=== PATIENT | female | born 1995 | race Caucasian/White ===

== ENCOUNTER 2016-10-30 10:33 | Emergency (ER) | payer BC ==
[2016-10-30 11:22] VITALS: BP 102/67
--- NOTE | 2016-10-30 11:37 | UC ---
Throat Pain/Nasal Gary HPI - HPI Summary HPI Summary: FEVER X 1 DAY + CHILLS, BODY ACHES, FATIGUE , + COUGH AND SORE THROAT, NO NASAL CONGESTION - History of Current Complaint Chief Complaint: UCRespiratory Stated Complaint: FLU SXS Time Seen by Provider: 10/30/16 11:23 Hx Obtained From: Patient Hx Last Menstrual Period: 10/23/16 Onset/Duration: Sudden Onset, Lasting Days - 1, Still Present Severity: Severe Cough: Nonproductive Associated Signs & Symptoms: Positive: Fever, Vomiting. Negative: Hoarseness, Sinus Discomfort, Nasal Discharge, Rash - Allergies/Home Medications Allergies/Adverse Reactions: Allergies Allergy/AdvReac Type Severity Reaction Status Date / Time seasonal Allergy Congestion Uncoded 10/30/16 11:23 Home Medications: Home Medications Norgestimate-Ethinyl Estradiol [Sprintec 28 0.25-35 mg-Mcg] 1 tab PO DAILY 10/30 [History Confirmed 10/30/16] PMH/Surg Hx/FS Hx/Imm Hx Respiratory History Of: Reports: Asthma - URI exercise induced GI/ History Of: Reports: Ulcer - URI AND EXERSIZE INDUCED - Surgical History Surgical History: Yes Surgery Procedure, Year, and Place: wisdom teeth - Family History Known Family History: Negative: Diabetes - Social History Alcohol Use: Occasionally Substance Use Type: None Smoking Status (MU): Never Smoked Tobacco Review of Systems Constitutional: Fever, Chills, Fatigue Skin: Negative Eyes: Negative ENT: Sore Throat Respiratory: Cough Cardiovascular: Negative Gastrointestinal: Negative Genitourinary: Negative Musculoskeletal: Arthralgia, Myalgia All Other Systems Reviewed And Are Negative: Yes Physical Exam Triage Information Reviewed: Yes Appearance: Well-Appearing, No Pain Distress, Well-Nourished Vital Signs: Initial Vital Signs Temp 99.4 F 10/30/16 11:13 Pulse 113 10/30/16 11:13 Resp 20 10/30/16 11:13 BP 102/67 10/30/16 11:13 Pulse Ox 99 10/30/16 11:13 Vital Signs Reviewed: Yes Eyes: Positive: Conjunctiva Clear ENT: Positive: Normal ENT inspection, Hearing grossly normal, Pharyngeal erythema, TMs normal. Negative: Nasal congestion, Nasal drainage Neck exam: Normal Neck: Positive: Supple, Nontender, No Lymphadenopathy Respiratory: Positive: Chest non-tender, Lungs clear, Normal breath sounds Cardiovascular: Positive: Tachycardia Abdominal Exam: Normal Abdomen Description: Positive: Soft. Negative: Distended, Guarding Bowel Sounds: Positive: Present Skin Exam: Normal Throat Pain/Nasal Course/Dx - Differential Dx/Diagnosis Provider Diagnoses: INFLUENZA Discharge - Discharge Plan Condition: Stable Disposition: HOME Prescriptions: Oseltamivir Phosphate [Tamiflu] 75 mg PO BID #10 cap Patient Education Materials: Influenza (ED) Forms: *School Release Referrals: Non Staff,Doctor [Primary Care Provider] - 7 Days
== END 2016-10-30 11:40 | disposition home or self-care (01) ==
LOC: UCCORT 10:33
DX: J11.1 Influenza due to unidentified influenza virus with other respiratory manifestations (principal)
CPT/HCPCS: 99212; G0463